=== PATIENT | female | born 1940 | race Caucasian/White ===

== ENCOUNTER → 2017-12-02 | Outpatient (CLI) | payer MEDICARE, MEDICAID ==
[~2017-12-02] MED LIST: ASPI-1471 PO; CALC-649 PO; CHLO-120 PO; CRAN1POW PO; ESCI20TA8 PO; FESO8PT PO; INSU100I35 SQ; IRON18TA2 PO; ISOS60TA42 PO; LANI SUBQ; LEVO112T83 PO; LUTE20CA11 PO; MAGN500C10 PO; MECL25TA9 PO; MELA3TAB31 PO; MIRA50TA PO; MULT1CAP59 PO; OMEP-137 PO; PRAM1.5T23 PO; ROSU5TAB8 PO; SPIR100T31 PO; VAL80 PO; VITA-200 PO
== END ==
LOC: LAB 13:38
PROVIDERS: ATTEND Urology
DX: N39.0 Urinary tract infection, site not specified (principal); B95.8 Unspecified staphylococcus as the cause of diseases classified elsewhere
CPT/HCPCS: 81001; 87077; 87088; 87186

== ENCOUNTER 2018-01-24 14:14 | Outpatient (RCR) | payer MEDICARE, MEDICAID ==
--- NOTE | 2018-02-13 15:05 | RADIOLOGY IMAGING REPORT ---
FACILITY: [facility] PATIENT NAME: LUIGI GRAHAM : [id number] MR: [id number] V: [id number] EXAM DATE: ORDERING PHYSICIAN: SALVADOR BECKHAM TECHNOLOGIST: Deysi Farris EXAMINATION:TWO-DIMENSIONAL ECHOCARDIOGRAPH REASON:HYPOXIA/SOB 2D Measurements (normal values in centimeters) LV endLV endRV endVent.LV PostAorticLeftPercent DiastolicSystolicDiastolicSeptumWallRootAtriumShortening (3.5-5.7)(0.9-2.6)(0.6-1.1)(0.6-1.1)(2.0-3.7)(1.9-4.0)(25-35%) [id number]% STROKE VOLUME: 55ml ESTIMATED EJECTION FRACTION:70% PARASTERNAL LONG AXIS: Overall left ventricular systolic function appears to be normal. Right ventricle also appears to contract normally with a normal TAPSE of 1.8. Mild concentric left ventricular thickening is noted. The aortic valve & mitral valve both appear to open normally. Color examination reveals a trace of mitral insufficiency present. PARASTERNAL SHORT AXIS: Again overall left ventricular systolic function appears to be normal. Aortic valve is trileaflet in configuration & not seen all that well but does appear to open fairly normally. APICAL FOUR AND TWO CHAMBER: Normal left ventricular ejection fraction. Chamber sizes also appear to be normal. Aortic valve area & mitral valve area both measure within normal ranges at 2.2 & 4.3cm2 respectively. Left atrial & right atrial volumes are measured within normal ranges at 26 & 16ml/m2. The tricuspid regurgitation Vmax measured 2.6m/sec. There is a mild amount of mitral insufficiency & trace to mild amount of tricuspid insufficiency present. SUBCOSTAL VIEW: No pericardial effusion was noted. No atrioseptal or ventriculoseptal defects were appreciated. Doppler examination of the mitral valve in diastole does reveal the A wave > E wave. OVERALL IMPRESSION: 1. Normal left ventricular ejection fraction of 70% with Grade 1 decrease in diastolic function. 2. Mild concentric left ventricular thickening but no evidence for any outflow tract obstruction. 3. A trileaflet aortic valve with no abnormalities. 4. Mild amount of mitral insufficiency with no mitral stenosis. 5. A trace amount of tricuspid insufficiency with estimated right ventricular systolic pressures within normal ranges at 30mm Hg which does include an estimated right atrial pressures of 3mm Hg. 6. A trace of pulmonic insufficiency noted. 7. In comparison with the examination done on 08/07/16, no changes are noted. No pericardial effusion was noted. Dictated by: Terri Knox M.D. on 01/28/2018 at 18:49 Transcribed by: TREVOR on 01/29/2018 at 10:34 Approved by: Terri Knox M.D. on 01/29/2018 at 14:43 [facility]
== END 2018-01-28 18:00 | disposition home or self-care (01) ==
LOC: US 14:14
PROVIDERS: ATTEND Family Medicine
DX: R09.02 Hypoxemia (principal); I34.0 Nonrheumatic mitral (valve) insufficiency; I37.1 Nonrheumatic pulmonary valve insufficiency
CPT/HCPCS: 93306

== ENCOUNTER → 2018-01-28 | Outpatient (CLI) | payer MEDICARE, MEDICAID | LOC: RESP 01:07 | PROVIDERS: ATTEND Family Medicine | DX: R09.02 Hypoxemia (principal); J98.4 Other disorders of lung | CPT/HCPCS: 94060; 94726; 94729 ==

== ENCOUNTER → 2018-02-04 | Outpatient (CLI) | payer MEDICARE, MEDICAID ==
--- NOTE | 2018-02-04 10:25 | RADIOLOGY IMAGING REPORT ---
[place] [facility] [place] NAME: Kassandra Shabazz : 1940 MR: [id number] V: [id number] EXAM DATE: ORDERING PHYSICIAN: SALVADOR BECKHAM TECHNOLOGIST: Location: [facility] - [place] Patient: Kassandra Shabazz : 1940 Visit/Account:[id number] Date of Sevice: 02/04/2018 Study: Frontal and lateral views of the chest Indication: Shortness of breath, hypoxemia Comparison study: June 17, 2006 Findings: PA and lateral views of the chest demonstrate no evidence of acute infiltrate. There is no evidence of pleural effusion. There is no evidence of pneumothorax. There is cardiomegaly present. This is a new change as compared to the previous study. There is no ev idence of earl congestive failure. There is pulmonary vascular congestion present. The visualized bony structures are unremarkable. IMPRESSION: New cardiomegaly and pulmonary vascular congestion. There is no evidence of earl failure present at this time. Report Dictated By: Eduar Oliver at 02/04/2018 10:05 AM Report E-Signed By: Eduar Oliver at 02/04/2018 10:21 AM WSN:[id number]
== END ==
LOC: RAD 09:16
PROVIDERS: ATTEND Family Medicine
DX: I51.7 Cardiomegaly (principal)
CPT/HCPCS: 71046

== ENCOUNTER → 2018-04-22 | Outpatient (REF) | payer MEDICARE, MEDICAID ==
[~2018-04-22] MED LIST changes: -SPIR100T31 PO; +SPIR100T33 PO
== END ==
LOC: ZZSENDIN 17:37
PROVIDERS: ATTEND Urology
DX: N39.0 Urinary tract infection, site not specified (principal); R31.1 Benign essential microscopic hematuria; B96.20 Unspecified Escherichia coli [E. coli] as the cause of diseases classified elsewhere
CPT/HCPCS: 87077; 87088; 87186

== ENCOUNTER → 2018-04-24 | Outpatient (CLI) | payer MEDICARE, MEDICAID ==
[2018-04-24 15:46] LABS: PLATELET COUNT, AUTOMATED 178 K/uL (150-450)
== END ==
LOC: LAB 15:23
PROVIDERS: ATTEND Family Medicine
DX: R61 Generalized hyperhidrosis (principal)
CPT/HCPCS: 36415; 85025

== ENCOUNTER → 2018-05-13 | Outpatient (CLI) | payer MEDICARE, MEDICAID | LOC: LAB 16:16 | PROVIDERS: ATTEND Urology | DX: N39.0 Urinary tract infection, site not specified (principal) | CPT/HCPCS: 81001; 87077; 87088; 87186 ==

== ENCOUNTER → 2018-05-22 | Outpatient (REF) | payer MEDICARE, MEDICAID | LOC: ZZSENDIN 15:34 | PROVIDERS: ATTEND Urology | DX: N39.0 Urinary tract infection, site not specified (principal); B96.20 Unspecified Escherichia coli [E. coli] as the cause of diseases classified elsewhere | CPT/HCPCS: 81001; 87077; 87088; 87186 ==

== ENCOUNTER 2018-05-24 17:16 | Outpatient (RCR) | payer MEDICARE, MEDICAID ==
[2018-05-28] MEDS ORDERED: IOPAMIDOL 76% 75 ML INFUS BTL 75 ML ONE (08:08)
[2018-05-28] MEDS ORDERED: IOPAMIDOL 76% 50 ML INFUS BTL 50 ML ONE (08:08)
[2018-05-28] MEDS ORDERED: NS(*) 0.9% 50 ML BAG 50 ML ONE (08:10)
--- NOTE | 2018-05-28 09:55 | RADIOLOGY IMAGING REPORT ---
FACILITY: [facility] PATIENT NAME: Kassandra Shabazz : 1940 MR: [id number] V: [id number] EXAM DATE: ORDERING PHYSICIAN: SULY SHINE TECHNOLOGIST: Location: [facility] - [place] Patient: Kassandra Shabazz : 1940 Visit/Account:[id number] Date of Sevice: 05/28/2018 ADDENDUM #1 Addendum: Contrast administered was 150 ML, not 100 ML as originally dictated. Report Dictated By: Ty Parks MD at 05/28/2018 10:11 AM Report E-Signed By: Ty Parks MD at 05/28/2018 10:14 AM ORIGINAL REPORT ABDOMEN/PELVIS W/WO CONTRAST HISTORY: UTIs TECHNIQUE: Axial images acquired through the abdomen/pelvis both with and without IV contrast.. Post contrast imaging performed during the excretory phase. Coronal and sagittal reformatting also perfor med. Data was sent to an independent workstation where 3-D reconstruction was performed. 3D images w ere created according reconstruction protocols developed by the radiologist and the facility radiolog y staff. 3-D images were created by the technologist. Bar Machine Operator images are stored on PACS. One of the following dose optimization techniques was utilized in the performance of this exam: Autom ated exposure control; adjustment of the mA and/or kV according to the patient's size; or use of an i terative reconstruction technique. Specific details can be referenced in the facility's radiology C T exam operational policy. CONTRAST: 100 mL Isovue-370 COMPARISON: None. FINDINGS: Visualized lung bases: Lung parenchyma is well-aerated. There is a 3 mm micronodule seen in the rig ht middle lobe (image four series 5) and a subpleural nodule versus scar or atelectasis at the left l kb base (image 23 series 5) which measures 6 x 8 mm. Hepatobiliary: Liver is mildly enlarged measures 21.7 cm craniocaudad dimension. No focal liver les ions are seen. Gallbladder unremarkable Spleen: Negative. Adrenals: Negative. Pancreas: There is mild senescent pancreatic atrophy. Kidneys ureters and bladder: There is a 4 mm cyst seen in the right renal cortex and a 1 cm exophytic simple cyst seen off the inferior pole of the left kidney. 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 There is no evidence of ureteral nephrolithiasis. Calcifications seen along the course of the ureters represent phleboliths. Within the bladder post contrast there is a small 1.2 cm curvilinear low density structure within the excreted contrast which does not connect with the bladder wall. No evidence of bladder wall lesions . Genitalia: Remote hysterectomy. GI: Large and small bowel are unremarkable in appearance. The appendix is not identified with certa inty on this study. Vessels/spaces/nodes: Negative. Bones/soft tissues: There is very minimal 3 mm anterolisthesis L3 over L4 with associated disc space narrowing L3-4 and at L2-3 compatible with disc disease. Additional findings: None pertinent. IMPRESSION: Small curvilinear low density seen within the excreted contrast in the urinary bladder probably simpl y were represents admixture of contrast laden and noncontrast laden urine. Debris such as blood clot less likely although cannot BE entirely excluded. Kidneys ureters and urinary bladder otherwise unr emarkable in etiology of patient's recurrent infections not identified. Hepatomegaly. Right middle lobe 3 mm pulmonary micronodule and left lung base subpleural 8 mm nodule versus scar or atelectasis. Per Fleischner Society guidelines detailed below, presuming patient does not have risk factors for malignancy recommend follow-up noncontrast chest CT in six months. Additional benign findings per above Exam otherwise unremarkable. Current Fleischner Society recommendation for incidental pulmonary nodules >6 to 8 mm in size (averag e of length and width): - In a patient at low risk for malignancy (i.e., minimal or absent smoking history, no known malignan cy or other risk factors): 6-[address], and if stable, an additional 18-24 month follow -up exam.- In patient at high risk for malignancy (e.g., smoking history and/or other known risk fact ors): 3-[address], and if stable, additional 9-12 and 24 month follow-up exams. (Yolanda H, Trey PAUL, Gamsu G, et al. Guidelines for management of small pulmonary nodules detected on CT scans: a statement from the Fleischner Society. Radiology. 2005; 237: 395-400.) Report Dictated By: Ty Parks MD at 05/28/2018 9:32 AM Report E-Signed By: Ty Parks MD at 05/28/2018 9:52 AM WSN:[id number]
== END 2018-05-28 18:00 | disposition home or self-care (01) ==
LOC: CT 17:16 → EDSTATUS 05-28 17:15 → CT 05-28 18:00
PROVIDERS: ATTEND Urology
DX: N39.0 Urinary tract infection, site not specified (principal); R16.0 Hepatomegaly, not elsewhere classified
CPT/HCPCS: 36415; 74178; 82565; J7050; Q9967

== ENCOUNTER → 2018-07-23 | Outpatient (REF) | payer MEDICARE, MEDICAID | LOC: ZZSENDIN 15:47 | PROVIDERS: ATTEND Urology | DX: N39.0 Urinary tract infection, site not specified (principal); B96.89 Other specified bacterial agents as the cause of diseases classified elsewhere | CPT/HCPCS: 87077; 87088; 87186 ==

== ENCOUNTER → 2018-07-24 | Outpatient (CLI) | payer MEDICARE, MEDICAID | LOC: LAB 08:00 | PROVIDERS: ATTEND Physician Assistant Medical | DX: R19.7 Diarrhea, unspecified (principal) ==

== ENCOUNTER → 2018-07-25 | Outpatient (REF) | payer MEDICARE, MEDICAID | LOC: ZZSENDIN 14:13 | PROVIDERS: ATTEND Physician Assistant Medical | DX: M79.605 Pain in left leg (principal) | CPT/HCPCS: 85379 ==

== ENCOUNTER → 2018-07-25 | Outpatient (CLI) | payer MEDICARE, MEDICAID ==
--- NOTE | 2018-07-25 17:52 | RADIOLOGY IMAGING REPORT ---
FACILITY: [facility] PATIENT NAME: Kassandra Shabazz : 1940 MR: [id number] V: [id number] EXAM DATE: ORDERING PHYSICIAN: ANTOLIN NGUYEN TECHNOLOGIST: Location: [facility] Patient: Kassandra Shabazz : 1940 Visit/Account:[id number] Date of Sevice: 07/25/2018 EXAMINATION: VENOUS DOPP LOW LEFT EXTREMITY COMPARISON: None Available HISTORY: Left leg pain. FINDINGS: Standard left lower extremity Doppler ultrasound with color flow and spectral analysis is p erformed. The common femoral, femoral, and popliteal veins are widely patent and compress appropriately. The v isualized calf veins and the proximal greater saphenous vein are patent. No popliteal fluid collection. A few prominent but otherwise morphologically normal lymph nodes in t he left inguinal region are favored to be reactive. The contralateral common femoral vein is patent. IMPRESSION: No left lower extremity deep venous thrombosis. Report Dictated By: Josr Pisano MD at 07/25/2018 5:47 PM Report E-Signed By: Josr Pisano MD at 07/25/2018 5:49 PM WSN:[id number]
== END ==
LOC: US 16:38
PROVIDERS: ATTEND Physician Assistant Medical
DX: M79.605 Pain in left leg (principal)

== ENCOUNTER → 2018-09-15 | Outpatient (CLI) | payer MEDICARE, MEDICAID | LOC: RESP 06:45 | PROVIDERS: ATTEND Internal Medicine | DX: Z02.9 Encounter for administrative examinations, unspecified (principal) ==

== ENCOUNTER → 2018-09-17 | Outpatient (CLI) | payer MEDICARE, MEDICAID ==
--- NOTE | 2018-09-17 18:27 | RADIOLOGY IMAGING REPORT ---
FACILITY: [facility] PATIENT NAME: Kassandra Shabazz : 1940 MR: [id number] V: [id number] EXAM DATE: ORDERING PHYSICIAN: KEVIN TURNER TECHNOLOGIST: Location: [facility] - [place] Patient: Kassandra Shabazz : 1940 Visit/Account:[id number] Date of Sevice: 09/17/2018 CHEST W/O CONTRAST HISTORY: Follow-up pulmonary nodule TECHNIQUE: CT chest without intravenous contrast. Contiguous helical images was performed from the l bk apices to below the diaphragm. One of the following dose optimization techniques was utilized in the performance of this exam: Autom ated exposure control; adjustment of the mA and/or kV according to the patient's size; or use of an i terative reconstruction technique. Specific details can be referenced in the facility's radiology C T exam operational policy. CONTRAST: None. COMPARISON: CT abdomen 05/28/2018, CT chest 09/16/2013 FINDINGS: Heart/vessels: Atherosclerotic calcification of the thoracic aorta, mitral valve and coronary vessel s is noted. Mediastinum: Small hiatal hernia is noted. Lymph nodes: Slightly prominent axillary lymph nodes are minimally changed from 2013. Lungs/pleura: 6 x 6 mm pleural-based left lower lobe nodule image 130 has slightly enlarged compared to CT chest from 2012 when it measured 4 mm maximally. 4 mm pleural-based right middle lobe nodule image 214 is stable from recent prior. Area of pleural-based thickening left lower lobe measuring 12 x 5 mm appears essentially stable datin g back to 2012. Visualized upper abdomen: Negative. Bones/soft tissues: Significant degenerative changes are noted in the patient is kyphotic. Sclerotic focus T1 vertebral body is stable from 2013. IMPRESSION: 1. 6 x 6 mm pleural-based left lower lobe nodule image 130 has slightly enlarged compared to CT ches t from 2012 when it measured 4 mm maximally. Recommend a follow-up noncontrasted CT of the chest in 3-6 months for reevaluation. 2. 3 mm right middle lobe nodule is stable from recent CT scan from May 2018. Report Dictated By: Carroll Mann MD at 09/17/2018 6:12 PM Report E-Signed By: Carroll Mann MD at 09/17/2018 6:24 PM WSN:[id number]
== END ==
LOC: CT 07:43
PROVIDERS: ATTEND Internal Medicine
DX: R91.1 Solitary pulmonary nodule (principal)
CPT/HCPCS: 71250

== ENCOUNTER → 2018-10-16 | Outpatient (CLI) | payer MEDICARE, MEDICAID | LOC: RESP 06:42 | PROVIDERS: ATTEND Internal Medicine | DX: G47.33 Obstructive sleep apnea (adult) (pediatric) (principal) ==

== ENCOUNTER → 2018-10-24 | Outpatient (CLI) | payer MEDICARE, MEDICAID | LOC: LAB 14:12 | PROVIDERS: ATTEND Urology | DX: N39.0 Urinary tract infection, site not specified (principal); R82.79 Other abnormal findings on microbiological examination of urine | CPT/HCPCS: 81001; 87088 ==

== ENCOUNTER → 2018-10-29 | Outpatient (CLI) | payer MEDICARE, MEDICAID ==
--- NOTE | 2018-10-29 16:29 | RADIOLOGY IMAGING REPORT ---
FAC[place] [facility] [place]IENT NAME: Kassandra Shabazz : 1940 MR: [id number] V: [id number] EXAM DATE: ORDERING PHYSICIAN: KEVIN HUDSON TECHNOLOGIST: Location: [facility] Patient: Kassandra Shabazz : 1940 Visit/Account:[id number] Date of Sevice: 10/29/2018 Exam type: CHEST PA LAT History: Cough and shortness of breath Comparison: Two-view chest February 04, 2018. And CT chest September 17, 2018 Findings: Cardiac silhouette is mildly enlarged but unchanged. There is moderate ectasia the thoracic aorta.. 6 mm pleural-based nodule anterior left lower lobe seen on the recent CT was better depicted by that imaging modality.. The 4 mm nodule in the right middle lobe also better depicted on the prior imagi ng modality. There is mild prominence of the interstitial markings although appearing similar to the prior study. There is no evidence of lobar infiltrates are pleural effusions IMPRESSION: 1. Cardiomegaly unchanged Previously noted pulmonary nodules seen on the prior CT were better depicted by that imaging modality Mild proximal of the interstitial markings appearing similar to the prior study and may be chronic al though superimposed acute processes not totally excluded such as mild interstitial pulmonary edema or interstitial pneumonia Report Dictated By: Dorothy Hagen MD at 10/29/2018 4:21 PM Report E-Signed By: Dorothy Hagen MD at 10/29/2018 4:25 PM WSN:[email or web address]
== END ==
LOC: RAD 15:59
PROVIDERS: ATTEND Family Medicine
DX: I51.7 Cardiomegaly (principal); R91.8 Other nonspecific abnormal finding of lung field
CPT/HCPCS: 71046

== ENCOUNTER → 2018-12-22 | Outpatient (CLI) | payer MEDICARE, MEDICAID ==
--- NOTE | 2018-12-22 18:31 | RADIOLOGY IMAGING REPORT ---
FACILITY: [facility] - [place] PATIENT NAME: Kassandra Shabazz : 1940 MR: [id number] V: [id number] EXAM DATE: ORDERING PHYSICIAN: KEVIN TURNER TECHNOLOGIST: Location: [facility] Patient: Kassandra Shabazz : 1940 Visit/Account:[id number] Date of Sevice: 12/22/2018 CT CHEST W/O CONTRAST History: Pulmonary micronodules TECHNIQUE: Contiguous axial images were performed through the chest to the level of the adrenal gla nds. No IV contrast was administered. Coronal and sagittal reformatting was also performed. One of karlee marsh following dose optimization techniques was utilized in the performance of this exam: Automated exp osure control; adjustment of the mA and/or kV according to the patient's size; or use of an iterative reconstruction technique. Specific details can be referenced in the facility's radiology CT exam o perational policy. COMPARISON STUDIES: Comparison chest CT 09/17/2018. And CTA chest September 16, 2013. Lungs / Pleura: There is a nonspiculated round pulmonary micronodule left lower lobe abutting the m ajor fissure (axial image 139 series 4) which measures 5 x 5 mm in diameter. This is unchanged from karlee marsh recent study but has enlarged since 2012 when it measured 3-4 mm diameter. There is also a right m iddle lobe nodule (image 237 series 4) measuring 3 mm diameter unchanged from the recent study althou gh not seen in 2013. Lungs are well-aerated. Mediastinum/nodes: negative. Heart and vessels: negative. Musculoskeletal / Body wall: 1 cm sclerotic lesion in the C2 vertebral body is unchanged from 2013 and consequently represents a benign bone island. Osseous structures otherwise unremarkable. Upper abdomen: Visualized abdominal viscera negative. IMPRESSION: Left lower lobe and right upper lobe pulmonary micronodule stable from September 2018. Right middle lo be nodule may be new from 2012 and left lower lobe nodule minimally increased in size. Consider one-y ear follow-up. See Fleischner Society guidelines detailed below. Current Fleischner Society recommendations for incidental pulmonary nodules >4 - 6 mm in size (averag e of length and width): - In a patient with low risk for malignancy (i.e., minimal or absent smoking history, no known malig caty or other risk factors): Single [address] - In a patient at high risk for malignancy (e.g., smoking history and/or other known risk factors): 6-[address], and if stable, an additional 18-24 month follow-up exam. (Yolanda H, Trey PAUL, Jose Alejandro G, et al. Guidelines for management of small pulmonary nodules detected on CT scans: a statement from the Fleischner Society. Radiology. 2005; 237: 395-400.) Report Dictated By: Ty Parks MD at 12/22/2018 6:12 PM Report E-Signed By: Ty Parks MD at 12/22/2018 6:27 PM WSN:[id number]
== END ==
LOC: CT 01:26
PROVIDERS: ATTEND Internal Medicine
DX: R91.8 Other nonspecific abnormal finding of lung field (principal)
CPT/HCPCS: 71250

== ENCOUNTER → 2019-03-13 | Outpatient (CLI) | payer MEDICARE, MEDICAID ==
--- NOTE | 2019-03-13 16:06 | RADIOLOGY IMAGING REPORT ---
FACILITY: [facility] PATIENT NAME: Kassandra Shabazz : 1940 MR: [id number] V: [id number] EXAM DATE: ORDERING PHYSICIAN: ITZEL ABDI TECHNOLOGIST: Location: [facility] - [place] Patient: Kassandra Shabazz : 1940 Visit/Account:[id number] Date of Sevice: 03/13/2019 Exam type: EXTREMITY NON-VASCULAR LEFT History: Lump on left forearm for years now starting to grow Comparison: None. Findings: Multiple images labeled left forearm are submitted for interpretation. Definite mass lesion is not s een. Although there is mild heterogeneity of the anterior musculature just medial to midline. If th e patient's symptoms persist however this could be further evaluated with MR with and without contras t IMPRESSION: 1. As above Report Dictated By: Dorothy Hagen MD at 03/13/2019 3:55 PM Report E-Signed By: Dorohty Hagen MD at 03/13/2019 4:00 PM WSN:[email or web address]
== END ==
LOC: US 00:58
PROVIDERS: ATTEND Dermatology
DX: R22.31 Localized swelling, mass and lump, right upper limb (principal)
CPT/HCPCS: 93880

== ENCOUNTER → 2019-04-03 | Outpatient (CLI) | payer MEDICARE, MEDICAID ==
--- NOTE | 2019-04-03 15:34 | RADIOLOGY IMAGING REPORT ---
FACILITY: [facility] [place] PATIENT NAME: LUIGI GRAHAM : [id number] MR: [id number] V: [id number] EXAM DATE: [id number] ORDERING PHYSICIAN: SALVADOR BECKHAM TECHNOLOGIST: Tiffanie Diaz PROCEDURE: BILATERAL DIGITAL SCREENING MAMMOGRAM WITH CAD ASSISTED INTERPRETATION & 3D TOMOSYNTHESIS. REASON FOR STUDY: Screening. FAMILY HISTORY OF BREAST CANCER: Grandmother. BREAST PROCEDURES/TREATMENTS: Benign surgical biopsy and benign Stereotactic biopsy of the Left breast. COMPARISON: 11/27/12. VIEWS OBTAINED: 2D & 3D full field CC & MLO. BREAST DENSITY: There are scattered areas of fibroglandular density throughout the breasts. MAMMOGRAM FINDINGS: The parenchymal pattern has remained stable allowing for difference in mammographic technique & patient positioning. IMPRESSION: BIRADS 1: Negative. DIAGNOSTIC CATEGORY 1--NEGATIVE. RECOMMENDATIONS: ROUTINE MAMMOGRAM AND CLINICAL EVALUATION. Dictated by: Dorothy Hagen M.D. on 04/03/2019 at 14:50 Transcribed by: LONNIE on 04/03/2019 at 14:57 Approved by: Dorothy Hagen M.D. on 04/03/2019 at 15:31 [facility]
== END ==
LOC: MAMO 00:58
PROVIDERS: ATTEND Family Medicine
DX: Z12.31 Encounter for screening mammogram for malignant neoplasm of breast (principal)
CPT/HCPCS: 77063; 77067